=== PATIENT | male | born 1935 | race Caucasian/White ===

== ENCOUNTER 2017-05-08 10:12 | Emergency (ER) | payer OTHER, BC ==
[~2017-05-08] VITALS: Ht 170.2 cm; Wt 101.0 kg
[~2017-05-08 10:12] MED LIST: LO-DOSE ASPIRIN81 M1 PO; LOPRESSOR25 MG PO; METAMUCIL PACKE1 PKT PO; NAPROSYN375 MG PO; TRAMADOL HCL50 MG PO; ULTRAM50 MG PO; ZOCOR40 MG PO
[2017-05-08] MEDS ORDERED: NAPROSYN375 MG PO (11:16)
[2017-05-08] MEDS ORDERED: ASPIR 8181 M1 PO (11:16)
[2017-05-08 12:06] LABS: BASOPHIL (%) 0.8 % (0-1); BASOPHIL COUNT 0.1 K/uL (0-0.1); EOSINOPHIL COUNT 0.3 K/uL (0-0.3); HEMATOCRIT 57.2 % (38.0-50.0); HEMOGLOBIN 19.9 G/DL (12.5-16.6); IMMATURE GRANULOCYTE (%) 1.1 % (0.0-0.7); LYMPHOCYTE (%) 23.1 % (15-42); LYMPHOCYTE COUNT 2.3 K/uL (1.0-2.8); MCH 32.5 PG (29.0-34.0); MCHC 34.8 G/DL (30.0-36.0); MCV 93.5 FL (86-99); MONOCYTE (%) 7.8 % (3-12); MONOCYTE COUNT 0.8 K/uL (0-0.8); NEUTROPHIL (%) 64.2 % (45-76); NEUTROPHIL COUNT 6.5 K/uL (1.8-6.4); PLATELET COUNT 217 K/uL (156-360); RBC DIS.WIDTH-SD 44.3 % (39-53); RED BLOOD COUNT 6.12 M/uL (4.00-5.50); WHITE BLOOD COUNT 10.1 K/uL (4.1-10.2)
[2017-05-08 12:26] LABS: ALBUMIN 4.2 g/dL (3.2-4.8); CHLORIDE 106 mEq/L (99-109); POTASSIUM 4.3 mEq/L (3.7-5.4); SODIUM 140 mEq/L (136-147)
[2017-05-08 12:28] LABS: GLUCOSE 98 mg/dL (70-99)
[2017-05-08 12:30] LABS: TOTAL BILIRUBIN 0.6 mg/dL (0.0-1.0)
[2017-05-08 12:32] LABS: ALKALINE PHOSPHATASE 88 IU/L (3-129); CREATININE 0.9 mg/dL (0.6-1.3); GFR ESTIMATE (CALCULATED) > 59 mL/min/ (58.99-99999)
[2017-05-08 12:33] LABS: UREA NITROGEN (BUN) 15 mg/dL (9-23)
[2017-05-08 12:34] LABS: AST (GOT) 33 IU/L (2-34)
[2017-05-08 12:35] LABS: ALT (GPT) 29 IU/L (3-49)
[2017-05-08 14:21] VITALS: BP 149/92
== END 2017-05-08 14:24 | disposition home or self-care (01) ==
LOC: EME 10:12
PROVIDERS: Physician Assistant
PROC: 2Y41X5Z Packing of Nasal Region using Packing Material (ICD-10-PCS; principal; 2017-05-08)
DX: R04.0 Epistaxis (principal); Z79.82 Long term (current) use of aspirin
CPT/HCPCS: 80053; 85025; 85610; 99281; 99284